=== PATIENT | male | born 1980 | race Caucasian/White ===

== ENCOUNTER 2021-03-09 15:57 | Outpatient (CLI) | payer BC, SELFPAY ==
--- NOTE | 2021-03-09 16:03 | XR_ITS ---
WS: [id number] RIGHT SHOULDER: 3 VIEW(S) TECHNIQUE: Internal and external rotation with Y view. HISTORY: RIGHT SHOULDER PAIN COMPARISON: None available. No fracture or dislocation or soft tissue abnormality. Glenohumeral and AC joints are unremarkable. XR/XR shoulder RT min 2V* [id number] IMPRESSION: Normal RIGHT shoulder.
== END 2021-03-09 15:58 | disposition home or self-care (01) ==
PROVIDERS: PCP Family Medicine; Visit Provider Registered Nurse
DX: M25.511 Pain in right shoulder (principal); G89.29 Other chronic pain
CPT/HCPCS: 73030

== ENCOUNTER → 2021-05-19 14:25 | Outpatient (BNVA) | payer BC, SELFPAY | PROVIDERS: PCP Family Medicine; Visit Provider Nurse Practitioner Family | DX: Z20.822 Contact with and (suspected) exposure to COVID-19 (principal); Z20.828 Contact with and (suspected) exposure to other viral communicable diseases | CPT/HCPCS: 87426 ==

== ENCOUNTER 2021-06-27 13:40 | Emergency (ER) | payer BC, SELFPAY ==
[2021-06-27 14:39] VITALS: BP 129/90; PULSE 95; RESP 16; TEMP 36.7; O2SAT 97; BMI 25.0
--- NOTE | 2021-06-27 15:31 | CTR_ITS ---
PROCEDURE INFORMATION: Exam: CT Abdomen And Pelvis Without Contrast Exam date and time: 06/27/2021 3:31 PM Age: 40 years old Clinical indication: Abdominal pain; Left; Prior surgery; Surgery date: 6+ months; Surgery type: Appy; Patient HX: L flank pain x2 weeks/ HX kidney stones, nausea; Additional info: Flank/abdominal pain TECHNIQUE: Imaging protocol: Computed tomography of the abdomen and pelvis without contrast. Radiation optimization: All CT scans at this facility use at least one of these dose optimization techniques: automated exposure control; mA and/or kV adjustment per patient size (includes targeted exams where dose is matched to clinical indication); or iterative reconstruction. COMPARISON: No relevant prior studies available. RADIATION DOSE METRICS: Total DLP (mGy-cm): 808.81 FINDINGS: Diaphragm: Small hiatal hernia. Liver: Normal. No mass. Gallbladder and bile ducts: Normal. No calcified stones. No ductal dilation. Pancreas: Normal. No ductal dilation. Spleen: Normal. No splenomegaly. Adrenal glands: Normal. No mass. Kidneys and ureters: Punctate bilateral nonobstructing renal calculi. There is an 8 mm calculus in an upper pole calyx of the left kidney which extends into the left renal pelvis. There is a 4 mm calculus in the distal left ureter at the UVJ. A 3 mm calculus is present in the distal left ureter proximal to the larger calculus. Edta-[id number]-[id number] left hydronephrosis/hydroureter with perinephric and periureteral inflammatory stranding. Stomach and bowel: Unremarkable. No obstruction. No mucosal thickening. Appendix: There has been an appendectomy. Intraperitoneal space: Unremarkable. No free air. No significant fluid collection. Vasculature: Unremarkable. No abdominal aortic aneurysm. Lymph nodes: Unremarkable. No enlarged lymph nodes. Urinary bladder: Unremarkable as visualized. Reproductive: Unremarkable as visualized. Bones/joints: Unremarkable. No acute fracture. Soft tissues: Unremarkable. CT/CT kidney stone [id number] IMPRESSION: 1. There are 2 calculi in the distal left ureter the larger of which measures 4 mm adjacent to the UVJ with obstructive changes as described above. 2. There are bilateral nonobstructing renal calculi the larger of which measures 8 mm in the upper pole the left kidney. Radiation Dose CTDIVOL = (mGy): DLP = 808.81 (mGy-cm)
--- NOTE | 2021-06-27 15:31 | ED_ITS ---
HPI - Abdominal Pain General: Chief Complaint: Abdominal Pain Stated Complaint: PT says kidney stone pains Time Seen by Provider: 06/27/21 15:28 Source: patient Mode of arrival: ambulatory Limitations: no limitations History of Present Illness: HPI narrative: Mr. Escudero is a very nice 40-year-old male who comes in with left flank pain. His pain is been intermittent over the past 2-1/2 weeks. Describes the pain is sharp in nature and radiates to his groin. He states he has had similar pain numerous times in the past secondary to kidney stones. He did not want to come in on this event but he says sometimes the pain is gotten so bad he is doubled over. He is afraid that he may have a stone that is stuck somewhere. Because of this he comes in asking to be evaluated for a kidney stone. Denies any fevers or chills. Said no nausea or vomiting. He denies other complaints or concerns. Associated Symptoms: Denies chills, coffee ground emesis, constipation, GI cramping, diarrhea, dysuria, fever(s), heartburn, hematochezia, hematuria, hematemesis, melena, nausea, syncope and vomiting Review of Systems Const: Denies: fever(s), chills, body aches, fatigue, malaise or diaphoresis Eyes: Denies: change in vision, blurry vision, photophobia, eye discomfort, eye discharge, eye redness or yellow eyes ENMT: Denies: throat pain, odynophagia, hoarseness, swelling of lips/tongue, ear or mastoid pain, ear discharge, change in hearing or nasal discharge Card: Denies: chest pain, palpitations, irregular heart rhythm, edema, lightheadedness, syncope, pre-syncope, dyspnea on exertion or orthopnea Resp: Denies: dyspnea, productive cough, non-productive cough, wheezing, hemoptysis or chest congestion GI: Denies: abdominal pain, nausea, vomiting, hematemesis, coffee ground emesis, heartburn, diarrhea, constipation, GI cramping, hematochezia or melena : Reports: flank pain; Denies: dysuria, urinary frequency, urinary urgency or hematuria Musc: Denies: neck pain, back pain, extremity pain, extremity swelling, joint pain, joint swelling, joint redness, joint warmth or joint stiffness Skin/Breast: Denies: rash, pruritus, erythema, skin pain or skin tenderness Neuro: Denies: headache(s), numbness in extremities, weakness in extremities, sensory changes, lack of coordination, difficulty walking, dizziness, vertigo, confusion, Slurred speech present or seizure-like activity Mitch/Lymph: Denies: easy bruising, easy bleeding, petechiae, purpura or enlarged lymph nodes All/Imm: Denies: urticaria, throat swelling, tongue swelling, facial swelling or acute wheezing PFSH ED PFSH: Medical History Gaxiola's esophagus GERD (gastroesophageal reflux disease) Kidney stones Surgical History History of James fundoplication Social History Smoking and tobacco status: current every day smoker Physical Exam Const: COMMON NORMALS: no acute distress, patient oriented x3, no limitations and alert GENERAL APPEARANCE: cooperative HENMT: COMMON NORMALS: normocephalic, atraumatic, external ears normal, EAC's normal and Normal external nose present HEAD & SCALP: normal to inspection, normocephalic and atraumatic FACE & SINUS: normal facial exam and face symmetric NOSE: Normal external nose present and Normal nares present EXTERNAL EAR: Yes external ears normal EXTERNAL AUDITORY CANAL: EAC's normal MOUTH: Normal oral and palatal mucosa present, lip normal and tongue normal Eye: COMMON NORMALS: Equal, round and reactive pupils present and conjunctivae normal GENERAL EYE: appearance normal, both eyes and all related structures ALIGNMENT: Yes alignment normal PERIORBITAL: periorbital findings normal EYELID: eyelids normal CONJUNCTIVA: Yes conjunctivae normal SCLERA: sclerae normal PUPIL: Yes Equal, round and reactive pupils present Neck/C-Spine: COMMON NORMALS: full ROM, no lymphadenopathy, supple, no meningeal signs and no JVD GENERAL: Yes normal visual inspection and Yes trachea midline Chest: COMMONS NORMALS: normal inspection of the chest and normal palpation of entire chest wall Resp: COMMON NORMALS: normal respiratory effort, No retractions, No use of accessory muscles and clear to auscultation bilaterally EFFORT & INSPECTION: Yes able to speak in complete sentences and Yes symmetric chest movement AUSCULTATION: clear to auscultation bilaterally, no crackles, no rales, no rhonchi and no wheezes Cardio: COMMON NORMALS: no JVD, regular rate, regular rhythm, S1 normal heart sound present and S2 normal heart sound present RATE: regular rate RHYTHM: regular rhythm HEART SOUNDS: S1 normal heart sound present, S2 normal heart sound present, no click, no gallops, no murmurs and no rubs GI: COMMON NORMALS: Soft to palpation and No hepatosplenomegaly present PALPATION: Yes Soft to palpation, No Tenderness to palpation present (GI), No Guarding due to palpation present (GI), No Rigid due to palpation, Yes No hepatosplenomegaly present, No Hernia present, No Palpable mass present and No Pulsatile mass present : COMMON NORMALS: Yes no CVA tenderness BLADDER/KIDNEY EXAM: Yes no CVA tenderness Back/Pelvis: COMMON NORMALS: no CVA tenderness, thoracic and lumbar spine normal to inspection, no thoracic nor lumbar tenderness and thoraco-lumbar ROM normal Extremity: COMMON NORMALS: normal to inspection, full ROM, capillary refill normal, no joint enlargement, no clubbing, cyanosis or edema and no calf tenderness Neuro: COMMON NORMALS: patient oriented x3, CN's II-XII intact bilaterally, moves all extremities, no focal motor deficits and no sensory deficits noted SENSORIUM/ORIENTATION: Yes alert MENINGEAL SIGNS: Yes no meningeal signs SPEECH: speech normal Psych: COMMON NORMALS: mental status grossly normal, Normal thought process present, cooperative, normal affect, speech normal and activity/motor behavior normal SPEECH: Yes normal speech THOUGHT PROCESS: Normal thought process present Skin: COMMON NORMALS: no rashes or lesions noted, turgor normal, no jaundice, no petechiae and no mottling GENERAL SKIN EXAM: no rashes or lesions noted and turgor normal Course Vital Signs: Vital signs: Vital Signs Temperature 98.1 F 06/27/21 14:39 Pulse Rate 74 06/27/21 16:29 Respiratory Rate 18 06/27/21 16:29 Blood Pressure 133/80 06/27/21 16:29 Pulse Oximetry 95 06/27/21 16:29 MDM - Abdominal Pain Lab Data: Labs: Lab Results 06/27/21 06/27/21 06/27/21 14:43 16:08 16:08 WBC 8.6 10^3/uL 10^3/ uL (4.0-10.0) RBC 4.54 10^6/uL 10^6 /uL (4.1-5.3) Hgb 14.4 g/dL g/dL (11.7-16.6) Hct 43.1 % % (42.0-52.0) MCV 94.9 fl H fl (80-94) MCH 31.7 pg pg (28.0-34.0) MCHC 33.4 g/dL g/dL (30.0-36.0) RDW 12.5 % % (12.1-15.1) Plt Count 269 10^3/cmm 10^3 /cmm (130-400) MPV 9.9 fL fL (7.4-10.4) Neut % (Auto) 50.5 % % Lymph % (Auto) 34.5 % % Douglas % (Auto) 11.2 % % Eos % (Auto) 2.9 % % Baso % (Auto) 0.7 % % Neut # (Auto) 4.32 10^3/uL 10^3 /uL (1.8-7.7) Lymph # (Auto) 3.0 10^3/uL 10^3/ uL (0.8-4.8) Douglas # (Auto) 1.0 10^3/uL H 10^ 3/uL (0.2-0.9) Eos # (Auto) 0.3 10^3/uL 10^3/ uL (0.0-0.8) Baso # (Auto) 0.1 10^3/uL 10^3/ uL (0.0-0.1) Nucleated RBC % (a uto) 0 % % Nucleated RBCs # 0.0 /100WBC /100W BC Sodium 140 mmol/L mmol/L (136-145) Potassium 4.6 mmol/L mmol/L (3.5-5.1) Chloride 104 mmol/L mmol/L (98-107) Carbon Dioxide 27 mmol/L mmol/L (22-29) Anion Gap 13.6 (5-19) BUN 12 mg/dL mg/dL (6-20) Creatinine 0.9 mg/dL mg/dL (0.7-1.2) GFR Calculation 93.9 mL/min mL/mi n (90-130) Glucose 76 mg/dL mg/dL (65-115) Calculated Osmolal ity 289 mOsm/kg mOsm/ kg (285-295) Calcium 9.2 mg/dL mg/dL (8.5-10.5) Total Bilirubin 0.3 mg/dL mg/dL (0.15-1.2) AST 25 U/L U/L (0-40) ALT 28 U/L U/L (0-41) Alkaline Phosphata se 75 IU/L IU/L (40-130) Total Protein 6.3 g/dL L g/dL (6.6-8.7) Albumin 4.5 g/dL g/dL (3.5-5.2) Globulin 1.8 g/dL g/dL (1.3-4.6) Urine Color Yellow (Yellow) Urine Appearance Clear (CLEAR) Urine pH 5 (5-7) Ur Specific Gravit y 1.005 (1.005-1.030) Urine Protein Neg (Negative) Urine Glucose (UA) Norm (Normal) Urine Ketones Negative (Negative) Urine Blood Neg (Negative) Urine Nitrate Negative (Negative) Urine Bilirubin Neg (Negative) Urine Urobilinogen Norm mg/dL mg/dL (Negative) Ur Leukocyte Angela ase Negative (Negative) Discharge Plan Discharge Patient Disposition: Home Clinical Impression: Kidney stones Condition: Stable Prescriptions: New hydrocodone-acetaminophen 5-325 mg tablet 1 tab PO Q8H PRN (Reason: pain) Qty: 14 RF: 0 Zofran 4 mg tablet 4 mg PO Q6H PRN (Reason: nausea and vomiting) Qty: 20 RF: 0 Macrobid 100 mg capsule 100 mg PO BID 7 Days Qty: 14 RF: 0 No Action propranolol 20 mg tablet 10 mg PO BID RF: 0 pantoprazole [Protonix] 20 mg tablet,delayed release (DR/EC) 20 mg PO DAILY RF: 0 atorvastatin 20 mg tablet 20 mg PO DAILY RF: 0 vitamin B complex Capsule 1 cap PO DAILY RF: 0 Airborne Vits Zinc Elderberry 65 mg-3.15 mcg- 3.35 mg-1 mg tablet,chewable PO RF: 0 [id number] serr [Osteo Bi-Flex (5-Loxin)] 1,500-400-100 mg-unit-mg tablet 1 tab PO DAILY RF: 0 amoxicillin 875 mg tablet 875 mg PO BID 7 Days Qty: 14 RF: 0 Discharge Orders: Discharge ED (Routine); Ordered 06/27/21 Ordered By: Penelope Bower Referrals: Peggy Olmedo DO [Primary Care Provider] - Timothy Monge MD [Physician] - 1-3 days Discharge Diet: Advance as tolerated Discharge Activity: Increase activity as tolerated Patient Instructions: Opioid Safety, Flank Pain (ED), How to Strain Your Urine (ED), Kidney Stones (ED) Activity Restrictions/Additional Instructions: Please return to the ER immediately for any of the signs or symptoms listed on your discharge instruction sheets, worsening/changing of your symptoms, you are not getting better as quickly as expected, or for ANY other cause or concerns. Please return to the ER for uncontrolled pain, new onset of vomiting, fever, or for any other cause for concern. Be certain to strain your urine and follow-up with Dr. Monge for recheck and further evaluation and care. Coding Level of Care Code ED Loss Claim Clerk for Chg Fwd Exam Comprehensive
[2021-06-27] MEDS: acetaminophen 1,000 MG/100 ML PIGGYBACK 400 MG IV (16:13)
[2021-06-27] MEDS: sodium chloride 0.9% 1,000 ML 999 ML IV (16:14)
[2021-06-27] MEDS: ondansetron 2 mg/ML SDV 2 mL 4 MG IVP (16:14)
[2021-06-27 16:29] VITALS: BP 133/80; PULSE 74; RESP 18; O2SAT 95
[2021-06-27 16:36] LABS: Add Urine Microscopic? NO; Charge for UA Resulting for Rev
[2021-06-27 16:40] LABS: Basophils # 0.1 10^3/uL (0.0-0.1); Basophils % 0.7 %; Eosinophils # 0.3 10^3/uL (0.0-0.8); Eosinophils % 2.9 %; Hematocrit 43.1 % (42.0-52.0); Hemoglobin 14.4 g/dL (11.7-16.6); Lymphocytes % 34.5 %; Mean Corpuscular HGB Conc 33.4 g/dL (30.0-36.0); Mean Corpuscular Hemoglobin 31.7 pg (28.0-34.0); Mean Corpuscular Volume 94.9 fl (80-94); Mean Platelet Volume 9.9 fL (7.4-10.4); Monocytes % 11.2 %; Neutrophils # 4.32 10^3/uL (1.8-7.7); Neutrophils % 50.5 %; Nucleated Red Blood Cells % 0 %; Platelet Count 269 10^3/cmm (130-400); Red Blood Count 4.54 10^6/uL (4.1-5.3); Red Cell Distribution Width 12.5 % (12.1-15.1); White Blood Count 8.6 10^3/uL (4.0-10.0)
[2021-06-27 16:41] LABS: Bilirubin Urine Neg (Negative); Blood Urine Neg (Negative); Glucose Urine UA Norm (Normal); Ketones Urine Negative (Negative); Leukocyte Esterase Urine Negative (Negative); Nitrate Urine Negative (Negative); Protein Urine Neg (Negative); Specific Gravity, Urine 1.005 (1.005-1.030); Urine Appearance Clear (CLEAR); Urine Color Yellow (Yellow); Urobilinogen Urine Norm (Negative); pH Urine 5 (5-7)
[2021-06-27 16:57] LABS: Alanine Aminotransferase 28 U/L (0-41); Albumin Level 4.5 g/dL (3.5-5.2); Alkaline Phosphatase 75 IU/L (40-130); Anion Gap 13.6 (5-19); Aspartate Amino Transferase 25 U/L (0-40); Blood Urea Nitrogen 12 mg/dL (6-20); Calcium 9.2 mg/dL (8.5-10.5); Carbon Dioxide 27 mmol/L (22-29); Chloride 104 mmol/L (98-107); Globulin 1.8 g/dL (1.3-4.6); Glomerular Filtration Rate 93.9 mL/min (90-130); Glucose 76 mg/dL (65-115); Osmolality Calculated 289 mOsm/kg (285-295); Potassium 4.6 mmol/L (3.5-5.1); Sodium 140 mmol/L (136-145); Total Bilirubin 0.3 mg/dL (0.15-1.2); Total Protein 6.3 g/dL (6.6-8.7)
[2021-06-27] MEDS: ketorolac 30 mg/mL INJ 10 MG IVP (17:11)
[2021-06-27 17:17] VITALS: BP 119/81; PULSE 74; RESP 17; O2SAT 98
== END 2021-06-27 17:20 | disposition home or self-care (01) ==
PROVIDERS: Physician Assistant; Emergency Provider Emergency Medicine; PCP Family Medicine
DX: N20.0 Calculus of kidney (principal); F17.210 Nicotine dependence, cigarettes, uncomplicated
CPT/HCPCS: 74176; 80053; 81003; 85025; 96361; 96374; 96375; 99284; J1885; J2405; J7030

== ENCOUNTER 2021-07-09 07:01 | Outpatient (CLI) | payer BC, SELFPAY ==
--- NOTE | 2021-07-09 07:06 | XR_ITS ---
WS: [id number] Exam: XR KUB [id number] Date/Time of Exam: 07/09/2021 7:06 AM Reason For Exam: KIDNEY STONES 1 cm left abdominal calcification in the region of the left kidney may represent a prominent renal st one. No bowel obstruction or free air. No sign of organ enlargement. Nonspecific pelvic calcification s. Regional bony elements appear normal. Additional 2 mm calcification superimposing the right kidney . 1 mm calcification along the right paraspinal region at the level of the L4-5 disc. XR/XR KUB [id number] IMPRESSION: 1. No acute abdominal process. 2. 1 cm calcification superimposing left kidney likely representing a large kno wn renal stone. 3. Small calcification superimposing the right renal silhouette and separate sm all 1 mm calcification along the right paraspinal region at the level of the L4 -5 disc. These could represent urinary tract stones also but are nonspecific.
== END 2021-07-09 07:02 | disposition home or self-care (01) ==
LOC: RAD 07:02
PROVIDERS: PCP Family Medicine; Visit Provider Urology
DX: N20.0 Calculus of kidney (principal)
CPT/HCPCS: 74018; 81003

== ENCOUNTER 2021-12-03 09:40 | Outpatient (CLI) | payer BC, SELFPAY ==
--- NOTE | 2021-12-03 09:45 | XR_ITS ---
WS: [id number] KUB, AP view, 12/03/2021 Clinical Data: Left Ureteral Calculus Comparison: KUB, 07/09/2021. Findings: No abnormal intraabdominal masses are seen. There is no dilatated small bowel or evidence of obstruc tion. There is an irregular calcification overlying the superior pole of the left kidney. Fecal material an d bowel gas obscure detail over both kidneys. There are phleboliths in the true pelvis. XR/XR KUB [id number] Impression: No change in probable left renal calculus.
[2021-12-03 12:40] LABS: Anion Gap 14.3 (5-19); Blood Urea Nitrogen 11 mg/dL (6-20); Calcium 9.4 mg/dL (8.5-10.5); Carbon Dioxide 26 mmol/L (22-29); Chloride 102 mmol/L (98-107); Glomerular Filtration Rate 82.8 mL/min (90-130); Glucose 93 mg/dL (65-115); Osmolality Calculated 285 mOsm/kg (285-295); Potassium 4.3 mmol/L (3.5-5.1); Sodium 138 mmol/L (136-145)
== END 2021-12-03 09:41 | disposition home or self-care (01) ==
PROVIDERS: PCP Family Medicine; Visit Provider Urology
DX: N20.1 Calculus of ureter (principal)
CPT/HCPCS: 74018; 80048; 81003

== ENCOUNTER 2022-03-15 11:01 | Outpatient (CLI) | payer BC, SELFPAY ==
--- NOTE | 2022-03-15 11:15 | US_ITS ---
WS: [id number] Exam: US renal BI* [id number] Date/Time of Exam: 03/15/2022 11:13 AM Reason For Exam: KIDNEY STONES The kidneys are of normal size, shape and location. No solid or cystic renal mass identified. Promine nt shadowing calcification in the upper pole of the left kidney most likely represent a prominent non obstructing stone. No renal obstruction is identified. The left kidney measures 10 x 4.85 x 4.58 cm. Left renal cortex is 1.8 cm at greatest thickness. The right kidney measures 8.6 x 3.88 x 3.7 cm. Rig ht renal cortex measures slightly over 1 cm greatest thickness. Thick-walled irregular urinary bladde r noted. Lobulated soft tissue mass noted in the bladder. It is difficult to determine if this is an intrinsic or extrinsic mass. There also is debris in the urinary bladder. US/US renal BI* [id number] IMPRESSION: 1. Abnormal urinary bladder with lobulated thickening of the bladder rdz and debris in the bladder. There is also a questionable discrete lobulated mass in the bladder. Cystoscopic evaluation would be indicated to rule out bladder neop lasm. 2. Prominent shadowing calcification in the upper pole the left kidney measurin g approximately 1.5 cm at greatest dimension. This has the appearance of a larg e nonobstructing stone. 2. No solid or cystic renal mass. No renal obstruction.
== END 2022-03-15 11:02 | disposition home or self-care (01) ==
PROVIDERS: PCP Family Medicine; Visit Provider Urology
DX: N20.2 Calculus of kidney with calculus of ureter (principal)
CPT/HCPCS: 76770; 81003

== ENCOUNTER → 2022-07-18 12:43 | Outpatient (BNVA) | payer BC, SELFPAY | PROVIDERS: PCP Family Medicine; Visit Provider Family Medicine Adult Medicine | DX: J11.1 Influenza due to unidentified influenza virus with other respiratory manifestations (principal) | CPT/HCPCS: 87400 ==

== ENCOUNTER 2022-09-12 13:54 | Outpatient (CLI) | payer BC, SELFPAY ==
--- NOTE | 2022-09-12 14:02 | XRR_ITS ---
PROCEDURE INFORMATION: Exam: XR Abdomen Exam date and time: 09/12/2022 2:02 PM Age: 42 years old Clinical indication: Condition or disease; Other: Urolithiasis; Prior surgery; Surgery type: Appy, fundification stomach, lithotripsy; TECHNIQUE: Imaging protocol: Radiologic exam of the abdomen. Views: Frontal supine view of the abdomen. 1 View. COMPARISON: CR XR KUB [id number] 12/03/2021 10:12 AM FINDINGS: Gastrointestinal tract: Normal. No bowel dilation. Bones/joints: Unremarkable. Other findings: A calcified density overlies the left renal shadow. This was seen on the prior CT scan as well. Moderate stool burden. XR/XR KUB [id number] IMPRESSION: Calcified density overlying the left renal shadow with seen on the prior CT scan as well and likely represents a renal calculus.
== END 2022-09-12 13:55 | disposition home or self-care (01) ==
LOC: RAD 13:57
PROVIDERS: PCP Family Medicine; Visit Provider Urology
DX: N20.9 Urinary calculus, unspecified (principal)
CPT/HCPCS: 74018; 81003